=== PATIENT | male | born 1985 | race African-American/Black ===

== ENCOUNTER 2018-09-29 01:11 | Emergency (ER) | payer OTHER ==
[~2018-09-29] VITALS: Ht 172.7 cm; Wt 83.9 kg
[~2018-09-29 01:11] MED LIST: ABACAVIR PO; OMEPRAZOLE40 MG PO
[2018-09-29] MEDS ORDERED: ATORVASTATIN CA40 MG PO (01:43)
[2018-09-29] MEDS ORDERED: CYMBALTA20 MG PO (01:43)
[2018-09-29] MEDS ORDERED: FOLIC ACID 1 MG1 MG PO (01:44)
[2018-09-29] MEDS ORDERED: NEURONTIN 400400 M1 PO (01:44)
[2018-09-29] MEDS ORDERED: SYNTHROID50 MCG PO (01:45)
[2018-09-29 04:45] VITALS: BP 124/77
== END 2018-09-29 05:47 | disposition home or self-care (01) ==
LOC: ER 01:11
DX: K21.0 Gastro-esophageal reflux disease with esophagitis (principal); F17.210 Nicotine dependence, cigarettes, uncomplicated; F41.9 Anxiety disorder, unspecified; Z21 Asymptomatic human immunodeficiency virus [HIV] infection status